=== PATIENT | male | born 1945 | race Caucasian/White ===

== ENCOUNTER 2018-03-09 19:11 | Emergency (ER) | payer MEDICARE, OTHER ==
[2018-03-09 19:43] VITALS: BP 144/75
--- NOTE | 2018-03-09 20:24 | UC ---
Headache HPI - HPI Summary HPI Summary: He is a pleasant 72 year old Gentleman who presents today for headache. Reports pain that is localized to the bumps in the left forehead and the the scalp in the temporal area. He denies any recent illness . Headache is localized to the bumps that he has noticed. Denies any trauma ,fever, chills, chest pain or shortness of breath. Denies any numbness or tingling. No rash other than the bumps that he has noted on his forehead - History Of Current Complaint Chief Complaint: UCS[place] Stated Complaint: SEVER PAIN IN HEAD Time Seen by Provider: 03/09/18 20:08 Hx Obtained From: Patient Onset/Duration: Sudden Onset, Lasting Days Onset Of Symptoms: Sudden, Still Present - headache is intermittent . Pain Intensity: 8 Pain Scale Used: 0-10 Numeric Timing: Constant, Intermittent, Lasting: Character: Sharp - burning stinging Location of Headache: Frontal, Temporal Aggravating Factor(s): Other - touching the localized bumps Allevating Factor(s): Nothing Associated Signs And Symptoms: Positive: Negative, Visual Changes - redness and blurring of vision. Negative: Dizziness, Nausea, Vomiting, Fever, Neck Pain, Neck Stiffness, Decreased LOC - Risk Factors SAH Risk Factors: Negative Meningitis Risk Factors: Negative SDH Risk Factors: Negative Temporal Arteritis Risk Factors: Greater Than 60 Years Old - Allergies/Home Medications Allergies/Adverse Reactions: Allergies Allergy/AdvReac Type Severity Reaction Status Date / Time No Known Allergies Allergy Verified 03/09/18 19:44 Home Medications: Home Medications Cholecalciferol (Vitamin D3) [Vitamin D3] 1,000 unit PO DAILY 03/09/18 [History Confirmed 03/09/18] PMH/Surg Hx/FS Hx/Imm Hx - Additional Past Medical History Additional PMH: arthritis Previously Healthy: Yes Endocrine History: Dyslipidemia - hyperlipidemia Other Cardiovascular History: negative Other Respiratory History: negative Other GI/ History: negative Other Neurological History: negative Other Psychological History: negative - Surgical History Surgical History: Yes Surgery Procedure, Year, and Place: prostectomy, septal defect - Social History Alcohol Use: Daily Substance Use Type: None Smoking Status (MU): Former Smoker Review of Systems Constitutional: Negative Skin: Other - bumps noted in the area of pain . Eyes: Blurred Vision, Eye Redness ENT: Negative Respiratory: Negative Cardiovascular: Negative Gastrointestinal: Negative Genitourinary: Negative Motor: Negative Neurovascular: Negative Musculoskeletal: Negative Neurological: Headache Is Patient Immunocompromised?: No All Other Systems Reviewed And Are Negative: Yes Physical Exam Triage Information Reviewed: Yes Appearance: Well-Appearing, No Pain Distress, Well-Nourished Vital Signs: Initial Vital Signs Temp 98.4 F 03/09/18 19:37 Pulse 87 03/09/18 19:37 Resp 16 03/09/18 19:37 BP 144/75 03/09/18 19:37 Pulse Ox 99 03/09/18 19:37 Vital Signs Reviewed: Yes Eyes: Positive: Conjunctiva Inflamed - mild bulbar eythema. Fluroescin stain negative for any ulcer. ENT: Positive: Hearing grossly normal, Pharynx normal, Other - Cermun oted bilaterally , TM not visible. Negative: Nasal congestion, Nasal drainage, Trismus, Muffled voice, Hoarse voice Neck exam: Normal Neck: Positive: Supple, Nontender, No Lymphadenopathy Respiratory Exam: Normal Respiratory: Positive: Chest non-tender, Lungs clear, Normal breath sounds. Negative: Crackles, Rhonchi, Stridor Cardiovascular: Positive: RRR, No Murmur, Pulses Normal Abdominal Exam: Normal Abdomen Description: Positive: Nontender, No Organomegaly, Soft Bowel Sounds: Positive: Present Musculoskeletal Exam: Normal Musculoskeletal: Positive: Strength Intact, ROM Intact, No Edema Neurological Exam: Normal Neurological: Positive: Alert, Other: - Cranial nerves Intact Reflexes normal Motor and sensory intact Psychological Exam: Normal Skin: Positive: significant lesion(s) - small bumps on forhead and on lateral temporal region in scalp.: small papular, erythematous , tender to touch . No drainag e. Headache Course/Dx - Course Course Of Treatment: Patient here with localized areas of bumps noted on his forehead and the scalp for 3 days. was available and he also looked at the frontal area. Appears like herpes zoster . He has some blurring of vision as well. Flourescin stain was negative for any dendritic ulcer. He was given 1 dose of acyclovir and was prescribed valtrex and was advised to follow p with his PCP and his artist blacksmith in 2 days. He expressed understanding - Differential Dx/Diagnosis Provider Diagnoses: Herpes Zoster Discharge - Sign-Out/Discharge Documenting (check all that apply): Discharge/Admit/Transfer - Discharge Plan Condition: Stable Disposition: HOME Prescriptions: ValACYclovir (*) [Valtrex 1 GM(*)] 1 gm PO TID 10 Days #30 tab Patient Education Materials: Kathia (ED) Referrals: Javier Suarez MD [Primary Care Provider] - 2 Days Additional Instructions: Follow up with your Primary doctor in 2 day on saturday and also see your artist blacksmith in 2 days , . Start taking the antiviral medication. If your symptoms get worse, return to ER immediately - Billing Disposition and Condition Condition: STABLE Disposition: HOME
[2018-03-09] MEDS ORDERED: Fluorescein Sod TOPICAL 0.6* 0.6 MG TEST OPHTHALMIC ONE ×2 (20:55→20:59)
[2018-03-09] MEDS ORDERED: Acyclovir* 200 MG CAP PO ONE (21:42)
[2018-03-09] MEDS ORDERED: ValACYclovir (*) 1 GM TAB PO SCH (22:00)
== END 2018-03-09 21:53 | disposition home or self-care (01) ==
LOC: UCEAST 19:11
DX: B02.9 Zoster without complications (principal); R51 Headache; E78.5 Hyperlipidemia, unspecified; Z90.79 Acquired absence of other genital organ(s); Z87.891 Personal history of nicotine dependence
CPT/HCPCS: 99212; A9270-GY; G0463

== ENCOUNTER 2020-06-03 06:43 | Observation (INO) ==
[2020-06-03 07:34] LABS: ABS Eosinophils 0.1 10^3/ul (0-0.6); ABS Lymphocytes 0.7 10^3/ul (1.0-4.8); ABS Monocytes 0.3 10^3/ul (0-0.8); ABS Neutrophils 3.3 10^3/ul (1.5-7.7); Eosinophil % 3.1 %; Hematocrit 38 % (42-52); Lymphocyte % 16.5 %; Mean Corpuscular HGB Conc 35 g/dL (31-36); Mean Corpuscular Hemoglobin 31 pg (27-31); Mean Corpuscular Volume 91 fL (80-94); Mean Platelet Volume 7.7 fL (7.4-10.4); Platelet Count 199 10^3/uL (150-450); Red Blood Count 4.14 10^6 /uL (4.18-5.48); Red Cell Distribution Width 14 % (10-15); White Blood Count 4.5 10^3/uL (3.5-10.8)
[2020-06-03 07:43] LABS: INR 0.96 (0.82-1.09)
[2020-06-03 07:51] LABS: Albumin 4.5 g/dL (3.2-5.2); Albumin/Globulin Ratio 1.6 (1-3); BUN/Creatinine Ratio 21.5 (8-20); Calcium 9.6 mg/dL (8.6-10.3); EGFR African American 65.5 (>60); EGFR Non-African American 54.1 (>60); Globulin 2.9 g/dL (2-4); Magnesium 2.1 mg/dL (1.9-2.7); Potassium 4.7 mmol/L (3.5-5.0); Total Bilirubin 0.5 mg/dL (0.2-1.0); Total Protein 7.4 g/dL (6.4-8.9)
[2020-06-03 07:57] LABS: Troponin I 0.09 ng/mL (<0.03)
[2020-06-03 08:19] LABS: Urine Appearance Clear; Urine Bilirubin Negative (Negative); Urine Blood Negative (Negative); Urine Color Straw; Urine Glucose Negative (Negative); Urine Ketones Negative (Negative); Urine Nitrite Negative (Negative); Urine Protein Negative (Negative); Urine Specific Gravity 1.006 (1.010-1.030); Urine Urobilinogen Negative (Negative)
[2020-06-03] MEDS ORDERED: NS 0.9% 1000 ml BAG 1,000 ML IV ONE ×2 (08:23→08:36)
[2020-06-03 08:30] LABS: TSH Ultra Thyroid Stim Horm 5.48 mcIU/mL (0.34-5.60)
[2020-06-03] MEDS ORDERED: Magnesium Hydroxide LIQ 30 ML UDC PO PRN (08:37)
[2020-06-03] MEDS ORDERED: Polyethylene Glycol 3350 17 GM PACKET PO PRN (08:42)
[2020-06-03 10:53] LABS: Troponin I 0.08 ng/mL (<0.03)
[2020-06-03] MEDS: Enoxaparin 40 MG/0.4 ML SYR SUBCUT SCH (11:17)
[2020-06-03] MEDS: NS 0.9% 1000 ml BAG 1,000 ML IV SCH ×2 (11:18→19:46)
[2020-06-03 11:48] LABS: Hepatitis B Surface Antigen Nonreactive (Nonreactive)
[2020-06-03 11:54] LABS: Hepatitis A Ab IgM Negative (Negative); Hepatitis B Core IgM Nonreactive (Nonreactive)
[2020-06-03 12:06] LABS: Hepatitis C Antibody Negative (Negative)
[2020-06-03] MEDS ORDERED: Perflutren Lipid Microsphere 3 ML VIAL ONE (13:29)
[2020-06-04] MEDS: NS 0.9% 1000 ml BAG 1,000 ML IV SCH (03:38)
[2020-06-04 07:04] LABS: ABS Eosinophils 0.1 10^3/ul (0-0.6); ABS Lymphocytes 0.7 10^3/ul (1.0-4.8); ABS Monocytes 0.4 10^3/ul (0-0.8); ABS Neutrophils 3.3 10^3/ul (1.5-7.7); Eosinophil % 2.7 %; Hematocrit 33 % (42-52); Hemoglobin 11.5 g/dL (14.0-18.0); Lymphocyte % 15.7 %; Mean Corpuscular HGB Conc 35 g/dL (31-36); Mean Corpuscular Hemoglobin 32 pg (27-31); Mean Corpuscular Volume 90 fL (80-94); Mean Platelet Volume 7.7 fL (7.4-10.4); Platelet Count 158 10^3/uL (150-450); Red Blood Count 3.64 10^6 /uL (4.18-5.48); Red Cell Distribution Width 14 % (10-15); White Blood Count 4.5 10^3/uL (3.5-10.8)
[2020-06-04 07:09] LABS: Albumin 3.8 g/dL (3.2-5.2); Albumin/Globulin Ratio 1.5 (1-3); BUN/Creatinine Ratio 17.3 (8-20); Calcium 8.7 mg/dL (8.6-10.3); EGFR African American 90.7 (>60); Globulin 2.6 g/dL (2-4); Magnesium 1.8 mg/dL (1.9-2.7); Potassium 4.3 mmol/L (3.5-5.0); Total Bilirubin 0.5 mg/dL (0.2-1.0); Total Protein 6.4 g/dL (6.4-8.9)
[2020-06-04] MEDS ORDERED: Magnesium Sulfate 2 gm BAG 2 GM/50 ML BAG IVPB ONE (08:23)
[2020-06-04] MEDS: Enoxaparin 40 MG/0.4 ML SYR SUBCUT SCH (09:36)
[2020-06-04] MEDS ORDERED: NS 0.9% 500 ml BAG 500 ML IV ONE (10:25)
[2020-06-04] MEDS ORDERED: NS 0.9% 1000 ml BAG 1,000 ML IV ONE ×2 (16:33→16:34)
[2020-06-04 17:01] VITALS: BP 100/56
== END 2020-06-04 18:40 | disposition home or self-care (01) ==
LOC: MEDTELE 06:43 → ED 06:43
PROVIDERS: ADMIT Internal Medicine; ATTEND Internal Medicine

== ENCOUNTER 2024-06-22 23:34 | Observation (INO) ==
[2024-06-22] MEDS ORDERED: Ondansetron ODT 4 mg TAB 4 MG TAB ONE (23:41)
[2024-06-22] MEDS: Ondansetron ODT 4 mg TAB 4 MG TAB PO ONE (23:52)
[2024-06-23] MEDS: NS 0.9% 1000 ml BAG 1,000 ML IV ONE (00:06)
[2024-06-23 00:12] LABS: ABS Eosinophils 0.1 10^3/uL (0.0-0.5); ABS Lymphocytes 0.8 10^3/uL (1.0-4.8); ABS Monocytes 0.5 10^3/uL (0.0-1.1); ABS Neutrophils 7.2 10^3/uL (1.5-7.6); Hematocrit 40.3 % (38-53); Hemoglobin 13.4 g/dL (13.2-16.3); Lymphocyte % 9.1 %; Mean Corpuscular Hemoglobin 30.4 pg (27-33); Mean Corpuscular Hgb Conc 33.3 g/dL (31-36); Mean Corpuscular Volume 91.3 fL (80-97); Mean Platelet Volume 7.1 fL (7.5-11.2); Platelet Count 207 10^3/uL (150-450); Red Blood Count 4.42 10^6/uL (4.06-5.63); Red Cell Distribution Width 14.6 % (12-17); White Blood Count 8.5 10^3/uL (3.6-10.2)
[2024-06-23 00:23] LABS: INR 0.99 (0.85-1.14)
[2024-06-23 00:32] LABS: High Sens Troponin Baseline 7 pg/mL (<20)
[2024-06-23 00:54] LABS: ALT 26 U/L (7-52); AST 23 U/L (13-39); Albumin 4.1 g/dL (3.2-5.2); Albumin/Globulin Ratio 1.8 (1-3); Alkaline Phosphatase 56 U/L (35-149); Anion Gap 12 mmol/L (2-16); Blood Urea Nitrogen 20 mg/dL (6-24); C Reactive Protein < 1.00 mg/L (<8.01); CO2 Carbon Dioxide 23 mmol/L (22-32); Calcium 8.7 mg/dL (8.6-10.3); Chloride 104 mmol/L (101-111); Creatinine, Serum 0.98 mg/dL (0.67-1.17); Globulin 2.3 g/dL (2-4); Glucose 163 mg/dL (70-100); Lipase 35 U/L (11.0-82.0); Potassium 4.4 mmol/L (3.5-5.0); Sodium 139 mmol/L (135-145); Total Bilirubin 0.4 mg/dL (0.2-1.0); Total Protein 6.4 g/dL (6.4-8.9); eGFR CKD-EPI 79.4 (>60)
[2024-06-23 01:09] LABS: High Sensitivity Troponin 1 Hr 7 pg/mL (<20)
[2024-06-23] MEDS: Iohexol 350 (CONTRAST) 500 ML MDV IV ONE (01:16)
[2024-06-23 01:52] LABS: Urine Appearance Clear; Urine Bilirubin Negative (Negative); Urine Blood Negative (Negative); Urine Color Light-Yellow; Urine Glucose Trace (Negative); Urine Ketones Negative (Negative); Urine Nitrite Negative (Negative); Urine Protein Negative (Negative); Urine Specific Gravity 1.049 (1.002-1.030); Urine Urobilinogen Negative (Negative)
[2024-06-23] MEDS: Morphine 4 MG/ML VIAL (1 ml) IV ONE ×2 (03:40→05:28)
[2024-06-23] MEDS: cefTRIAXone 1 gm/50 mL D5W 1 GM/50 ML BAG IV ONE (03:42)
[2024-06-23] MEDS: metroNIDAZOLE IV 500 MG/100ML 500 MG/100 ML BAG IVPB ONE (03:42)
[2024-06-23] MEDS: ZOSYN 3.375 GM x ONE DOSE over 30 miuntes IV (05:34)
[2024-06-23] MEDS ORDERED: Acetaminophen IV 1 GM/100ML 1,000 MG/100 ML BAG IV PRN (05:57)
[2024-06-23] MEDS ORDERED: Ondansetron 4 mg VIAL 2 MG/ML 2 ml VIAL IV PRN ×2 (05:58→14:04)
[2024-06-23] MEDS ORDERED: Zosyn per Pharmacy NOTE FOLLOW UP SCH (06:00)
[2024-06-23] MEDS: NS 0.9% 1000 ml BAG 1,000 ML IV SCH (08:36)
[2024-06-23] MEDS: Morphine 2 MG/ML SYRINGE IV PRN (08:45)
[2024-06-23] MEDS: ZOSYN 3.375 GM Q8H per EXTENDED INFUSION IV SCH (11:52)
[2024-06-23] MEDS ORDERED: Bupivacaine 0.25% EPI 200,000 30 ML SDV ONE (13:46)
[2024-06-23] MEDS ORDERED: fentaNYL 250 mcg/5 ml 50 MCG/ML 5 ml VIAL (250 MCG) ONE ×2 (14:02→15:07)
[2024-06-23] MEDS ORDERED: Dexamethasone IV 4 MG/ML VIAL 1 ml VIAL ONE ×3 (14:02→15:07)
[2024-06-23] MEDS ORDERED: Midazolam 2 mg/2 ml VIAL 1 mg/ml 2 ml VIAL (2 mg) ONE ×3 (14:02→15:07)
[2024-06-23] MEDS ORDERED: Lidocaine 2% PF 5 ML VIAL ONE ×2 (14:02→15:07)
[2024-06-23] MEDS ORDERED: Propofol 10 MG/ML 20 ML BTL ONE ×2 (14:02→15:07)
[2024-06-23] MEDS ORDERED: Ondansetron 4 mg VIAL 2 MG/ML 2 ml VIAL ONE ×2 (14:02→15:07)
[2024-06-23] MEDS ORDERED: Rocuronium 50 mg VIAL 10 mg/ml 5 ml VIAL (50 mg) ONE ×2 (14:02→15:07)
[2024-06-23] MEDS ORDERED: Acetaminophen IV 1 GM/100ML 1,000 MG/100 ML BAG IV ONE ×2 (14:04→14:49)
[2024-06-23] MEDS ORDERED: Scopolamine 1 mg/72hr PATCH TRANSDERM ONE (14:04)
[2024-06-23] MEDS ORDERED: Naloxone 0.4 mg VIAL 0.4 mg/ml 1 ml VIAL IV PRN (14:04)
[2024-06-23] MEDS ORDERED: fentaNYL 100 mcg/2 ml 50 MCG/ML VIAL IV PRN (14:04)
[2024-06-23] MEDS ORDERED: Metoclopramide 5 MG/ML VIAL (10 mg) IV PRN (14:04)
[2024-06-23] MEDS ORDERED: Buffered Lidocaine 1% SYRIN 1 ml INTRADERM ONE (14:04)
[2024-06-23] MEDS ORDERED: Phenylephrine 40 mcg/mL 10mL (400mcg) SYRINGE ONE (14:50)
[2024-06-23] MEDS ORDERED: NS 0.45% 1000 ml BAG 1,000 ML IV SCH (15:00)
[2024-06-23] MEDS ORDERED: Lactated Ringers 1000 ml BAG 1,000 ML IV SCH (15:00)
[2024-06-23] MEDS ORDERED: fentaNYL 100 mcg/2 ml 50 MCG/ML VIAL ONE (15:05)
[2024-06-23 16:41] VITALS: BP 99/67
== END 2024-06-23 17:30 | disposition home or self-care (01) ==
LOC: ED 23:34 → EDHOLD 23:34 → AA 06-23 13:37
PROVIDERS: ADMIT Hospitalist; ATTEND Surgery